=== PATIENT | female | born 1975 | race American Indian/Alaskan Native ===

== ENCOUNTER 2016-09-02 08:38 | Emergency (ER) | payer OTHER ==
[2016-09-02 08:55] VITALS: BP 121/79
[2016-09-02] MEDS ORDERED: MOTRIN PO ONE (10:30)
--- NOTE | 2016-09-02 11:25 | XRay Report ---
LEFT SHOULDER: History: Left shoulder pain. Routine views demonstrate normal bony and soft tissue structures with normal joint alignment of the shoulder. IMPRESSION: Normal study.
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
== END 2016-09-02 12:44 | disposition home or self-care (01) ==
LOC: ED 08:38
DX: M25.512 Pain in left shoulder (principal); J45.909 Unspecified asthma, uncomplicated; Z88.2 Allergy status to sulfonamides; V89.2XXA Person injured in unspecified motor-vehicle accident, traffic, initial encounter; Y93.89 Activity, other specified; Y99.9 Unspecified external cause status; Y92.410 Unspecified street and highway as the place of occurrence of the external cause

== ENCOUNTER 2020-12-05 17:34 | Emergency (ER) | payer SELFPAY | END 2020-12-06 04:48 | LOC: ED 17:34 | DX: J45.909 Unspecified asthma, uncomplicated (principal); Z53.21 Procedure and treatment not carried out due to patient leaving prior to being seen by health care provider ==